=== PATIENT | female | born 1980 | race Two or more races ===

== ENCOUNTER 2018-04-24 11:34 | Outpatient (CLI) | payer OTHER | END 2018-04-24 11:37 | disposition home or self-care (01) | LOC: RAD 11:34 | DX: M99.01 Segmental and somatic dysfunction of cervical region (principal); M99.02 Segmental and somatic dysfunction of thoracic region ==

== ENCOUNTER 2024-10-12 10:08 | Outpatient (CLI) | payer OTHER | END 2024-10-12 10:13 | disposition home or self-care (01) | LOC: TOM 10:08 | DX: N20.0 Calculus of kidney (principal) ==